=== PATIENT | female | born 1960 | race Caucasian/White ===

== ENCOUNTER 2017-04-14 11:32 | Inpatient (IN) ==
[2017-04-14] MEDS ORDERED: PHENAZOPYRIDINE 95 MG TABLET PO STA (12:17)
[2017-04-14] MEDS ORDERED: LEVOFLOXACIN INJ 750 MG in PREMIX 1 EACH IV STA (12:17)
[2017-04-14] MEDS ORDERED: FUROSEMIDE 40 MG/4 ML VIAL IV STA (12:17)
[2017-04-14] MEDS ORDERED: FUROSEMIDE 40 MG/4 ML VIAL ONE (12:28)
[2017-04-14] MEDS ORDERED: PHENAZOPYRIDINE 95 MG TABLET ONE (12:29)
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
[2017-04-14 13:03] LABS: Basophils # 0.1 10*3/uL (0.0-0.2); Basophils % 1.3 % (0.0-0.8); Eosinophils # 0.3 10*3/uL (0.0-0.87); Eosinophils % 7.1 % (0.00-10.9); Hematocrit 39.7 VOL% (35.7-47.0); Hemoglobin 13.7 GM/DL (12.0-16.0); Immature Granulocytes % 0.3 %; Immature Granulocytes Absolute 0.01 #; Lymphocytes # 0.8 10*3/uL (1.4-4.0); Lymphocytes % 21.2 % (21.3-54.2); Mean Corpuscular HGB Conc 34.5 GM/DL (32-36); Mean Corpuscular Hemoglobin 27 PG (27-34); Mean Corpuscular Volume 78.1 FL (87-102); Mean Platelet Volume 11.2 FL (9.6-12.0); Monocytes # 0.4 10*3/uL (0.11-0.8); Neutrophils # 2.3 10*3/uL (1.4-7.4); Neutrophils % 59.1 % (38.7-73.9); Platelet Count 141 T/CUMM (130-400); Red Blood Count 5.08 MC/CUMM (3.8-5.5); Red Cell Distribution Width 15.7 % (9.3-17.3); White Blood Count 3.9 T/CUMM (4-12)
[2017-04-14 13:25] LABS: Apearance,Urine CLOUDY (Clear); Bacteria,Urine Occasional /HPF (Few); Bilirubin,Urine Negative (Negative); Blood, Urine Large mg/dL (Negative); Glucose,Urine (UA) >=500 mg/dL (Negative); Ketones,Urine Negative (Negative); Mucus,Urine Moderate /LPF (Occasional); Nitrite,Urine Negative (Negative); Protein,Urine 100 MG/DL; RBC,Urine 6798 /HPF (0-4); Squamous Epithelial Cell,Urine Occasional /HPF (0-10); Urine Color Red (Yellow); Urine Specific Gravity 1.021 (1.001-1.035); WBC,Urine 1 /HPF (0-6)
[2017-04-14 13:34] LABS: Alanine Aminotransferase 24 U/L (13-56); Albumin 3.2 G/DL (3.4-5.0); Alkaline Phosphatase 235 U/L (45-117); Amylase 54 U/L (25-115); Aspartate Amino Transferase 31 U/L (0-37); Blood Urea Nitrogen 12 MG/DL (7-18); Calcium 8.7 MG/DL (8.5-10.1); Glucose 383 MG/DL (74-106); Osmolality,Calculated 281.4 MOS/KG (273-304); Sodium 133 MMOL/L (136-145); Total Protein 8.2 G/DL (6.4-8.3); Troponin I Only < 0.015 NG/ML (0.00-0.045)
[2017-04-14] MEDS ORDERED: LEVOFLOXACIN INJ 150 ML IV ONE (13:34)
[2017-04-14 13:39] LABS: Ammonia 96 UMOL/L (11-32)
[2017-04-14] MEDS ORDERED: MORPHINE 2 MG/1 ML SYRINGE IV PRN ×2 (15:11→15:33)
[2017-04-14] MEDS ORDERED: ONDANSETRON 4 MG/2 ML VIAL IV PRN (15:11)
[2017-04-14] MEDS ORDERED: SODIUM CHLORIDE 0.9% 1,000 ML IV SCH (15:30)
[2017-04-14] MEDS ORDERED: diphenhydrAMINE CAP 25 MG CAPSULE PO PRN (15:33)
[2017-04-14] MEDS ORDERED: ACETAMINOPHEN 325 MG TABLET PO PRN ×2 (15:33)
[2017-04-14] MEDS ORDERED: PROMETHAZINE 25 MG/1 ML VIAL IM PRN (15:33)
[2017-04-14] MEDS ORDERED: guaiFENesin/DM ER 600-30 MG TABLET PO PRN (15:33)
--- NOTE | 2017-04-14 15:36 | XRay Report ---
History: Shortness of breath Date: 04/14/2017 Study: Chest x-ray AP portable Comparison exam: No previous similar There is borderline cardiomegaly. There is no mediastinal mass. The pulmonary vasculature is not engorged. The lungs are generally clear when accounting for shallow inspiration and light radiographic technique. There is no gross pleural effusion. There is minimal thoracic spondylosis. Impression: No acute process. Shallow breath. Borderline cardiomegaly PROCEDURE INTERPRETED AT [facility] DEPARTMENT OF RADIOLOGY Final Report Signed by: Dr. Angie Lopez
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
[2017-04-14 15:47] LABS: Triglycerides 105 MG/DL (2-150)
--- NOTE | 2017-04-14 15:50 | CT Report ---
History: Abdominal distention. Hematuria Date: 04/14/2017 Study: CT abdomen and pelvis without contrast Comparison exam: No previous similar Technique: Spiral CT sections were obtained from the lung bases to the pubic symphysis without contrast. CT abdomen: The partially visualized lung bases are grossly clear. There is no gross pleural or pericardial effusion. There is no gross hepatic mass. The liver has a finely nodular outer contour as can be seen with cirrhosis. There is moderate diffuse splenomegaly. There is mild perihepatic and perisplenic ascites with mild paracolic ascites bilaterally as well. The fluid-filled gallbladder is unremarkable. There is no gross mass of the pancreas or kidneys. The adrenal glands are unremarkable. There is no aneurysm of the moderately calcified abdominal aorta. There are some scattered shotty nonspecific mesenteric lymph nodes. There is no evidence of appendicitis. There is no evidence of pneumoperitoneum. There is no radiopaque renal or ureteral stone. CT pelvis: There is no pelvic mass or abnormal pelvic fluid collection. A Woodruff catheter is well-positioned. Impression: Changes compatible with cirrhosis. Splenomegaly. Ascites. No definite acute process otherwise. Woodruff catheter appears well-positioned The CT exam was performed using one or more of the following dose reduction techniques: Automated exposure control, adjustment of the mA and/or kV according to patient size, or use of iterative reconstruction technique. PROCEDURE INTERPRETED AT [facility] DEPARTMENT OF RADIOLOGY Final Report Signed by: Dr. Angie Lopez
[2017-04-14 15:56] LABS: Risk Ratio 3.14; VLDL CHOLESTEROL 21.4 MG/DL
[2017-04-14] MEDS ORDERED: DEXTROSE 50% 25 GM/50 ML SYRINGE IV PRN (16:01)
[2017-04-14] MEDS ORDERED: GLUCAGON 1 MG VIAL IM PRN (16:01)
[2017-04-14] MEDS: SPIRONOLACTONE 100 MG TABLET PO SCH (16:30)
[2017-04-14] MEDS: SODIUM CHLORIDE 0.9% 1,000 ML IV SCH (16:43)
[2017-04-14] MEDS: CIPROFLOXACIN INJ 400 MG in PREMIX 1 EACH IV SCH (16:49)
[2017-04-14] MEDS: PANTOPRAZOLE 40 MG TABLET PO SCH (16:55)
[2017-04-14] MEDS ORDERED: INSULIN LISPRO 100 UNIT/ML SUBCUT SCH (17:00)
--- NOTE | 2017-04-14 17:08 | Ultrasound Report ---
Exam: US gallbladder Date:04/14/2017 3:53 PM Comparison:None Indication: Pancreatitis Real-time ultrasound images are captured and archived. There is mild increased echogenicity throughout the liver compatible with mild fatty infiltration. There is no focal hepatic mass. There is hepatopedal flow in the portal vein. There is mild perihepatic ascites. There is no evidence of cholelithiasis. There is gallbladder wall thickening. The patient was tender over the gallbladder with ultrasound compression. There is no abnormal biliary dilatation. There is a 14 mm simple cyst at the upper pole right kidney. The kidney is otherwise unremarkable. There is some mild plumpness of the pancreas diffusely by sonography, though there is no focal pancreatic mass. ORGAN MEASUREMENTS Liver Length: 16.1 cm Gallbladder Wall Thickness: 6 mm CBD: 3 mm Right kidney: 10.5 cm length Impression: There is gallbladder wall thickening and a positive sonographic Woodall sign. Consider acalculous cholecystitis. There is no cholelithiasis Mild perihepatic ascites Mild nonspecific diffuse prominence of the pancreas PROCEDURE INTERPRETED AT [facility] DEPARTMENT OF RADIOLOGY Final Report Signed by: Dr. Angie Lopez
[2017-04-14 17:11] LABS: Hepatitis A Ab IgM Quant 0.03 Index; Hepatitis A Ab IgM Result Negative (Negative); Hepatitis B Core IgM Quant 0.16 Index; Hepatitis B Core IgM Result Negative (Negative); Hepatitis B Surface Ag Quant 0.14 Index; Hepatitis B Surface Ag Result Negative (Negative); Hepatitis C Virus Ab Quant 0.04 Index; Hepatitis C Virus Ab Result Negative (Negative)
[2017-04-14] MEDS: LACTULOSE 20 GM/30 ML UDCUP PO SCH ×2 (18:45→21:41)
[2017-04-14] MEDS: metroNIDAZOLE INJ 500 MG in PREMIX 1 EACH IV SCH (18:46)
[2017-04-14] MEDS ORDERED: QUEtiapine 25 MG TABLET PO SCH (22:00)
[2017-04-14] MEDS: INSULIN LISPRO 100 UNIT/ML SUBCUT PRN (22:20)
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
[2017-04-15] MEDS: metroNIDAZOLE INJ 500 MG in PREMIX 1 EACH IV SCH ×3 (00:20→10:13)
[2017-04-15] MEDS: SODIUM CHLORIDE 0.9% 1,000 ML IV SCH (03:01)
[2017-04-15] MEDS: LACTULOSE 20 GM/30 ML UDCUP PO SCH ×2 (03:12→06:14)
[2017-04-15] MEDS: CIPROFLOXACIN INJ 400 MG in PREMIX 1 EACH IV SCH (04:00)
--- NOTE | 2017-04-15 07:11 | Gastrointestinal Consult Note ---
Assessment and Plan (1) Cirrhosis of liver with ascites Status: Acute Assessment and plan: This patient has been worked up by Dr. Jordan Barnhart of [facility] but no liver biopsy has been performed. I think she will end up having nonalcoholic fatty liver disease as the cause for her cirrhosis, she also has a slightly elevated alkaline phosphatase and bilirubin suggestive of possible primary biliary cirrhosis and will likely benefit from an antimitochondrial antibody and possibly liver biopsy. She is not a drinker. Her hepatitis A, B, and C are all negative. Will rule out hemochromatosis, alpha-1 antitrypsin deficiency as well, autoimmune hepatitis. I doubt Charles's disease. Current Visit: Yes (2) Pancreatitis Status: Acute Assessment and plan: There may be an abdominal process going on that is made the patient's lipase level elevated. CT scan does not show any inflammation around the pancreas. The patient is getting better on clear liquids and IV fluid rate at 150 mL/h. I do not think I would push the fluid rate higher than this for the present time will simply follow the lipase levels. She may have gallbladder sludge but does not have a history of drinking. It does not appear that her triglycerides are elevated. We will simply watch for right now would not be aggressive is 4 hours other treatments. I suspect that some of her pain may also be due to constipation and we will observe how she does with MiraLAX being given presently. We are getting old records from her commissioner of officials in [facility] as well. Current Visit: Yes (3) Hematuria Status: Acute Assessment and plan: The patient had a Woodruff in place previously and this is since been removed she had a very high red blood cell count and irritation from the Woodruff may be responsible for great amount of the patient's pain, we will watch and see what her urinalysis looks like now that she has had the Woodruff removed. Current Visit: Yes History of Present Illness Chief complaint: Bilateral lower quadrant pain near bladder, hematuria, ? Pancreatitis History of present illness: Ms. Degroot is a 56 year old female who has a history of development of a cramping 10 out of 10 pain in her right and left lower quadrants starting yesterday. She did feel mildly constipated. She has had some relief with passage of bowel movements since that time the pain is now down to 8 out of 10 in intensity. She does have a previous history of being worked up by a local commissioner of officials in [facility] approximately 7-8 months ago, the doctor's name was Dr. Jordan Barnhart. He performed both upper endoscopy on the patient which was "completely normal" as well as a colonoscopy which again was not indicative of any polyps. The patient is not clear as to whether there was diverticulosis noted. The patient was noted to have cirrhosis of some type but although this was hepatitis A, B, and C negative the patient is not sure what the cause of the cirrhosis is--likely nonalcoholic fatty liver disease. The patient denies any heavy drinking IV drug use or high risk sexual exposure. We will check her for autoimmune hepatitis and hemochromatosis as well as alpha-1 antitrypsin deficiency as well. This may or may not be related to the pain. Patient does have evidence of ascites but no pancreatic swelling and no appearance of abnormality of her gallbladder. Her white blood cell count is actually low at 3.9, within normal hematocrit and hemoglobin at 39.7 and 13.7. Glucoses are high running in the high 200s to low 300s. LFTs were normal with a slightly high alkaline phosphatase at 235 and a bilirubin of 1.2 but an ALT and AST that are normal at 31 and 24. Urinalysis shows high urobilinogen level high glucose and low white blood cell count with a high RBC count at 6793. It is unclear whether this is due to traumatic Woodruff insertion versus kidney stone. Triglyceride is only 107. Lipase level was noted to be 652 with a normal amylase level of 54. CT scan obtained yesterday demonstrates changes of cirrhosis with splenomegaly and ascites otherwise no acute process identified Woodruff catheter appeared to be well positioned. There did not appear to be any renal or ureteral stone identified. The ultrasound showed a slight gallbladder wall thickening of 6 mm liver length of 16 cm but no pancreatic mass and no liver mass but increased echogenicity consistent with fatty infiltration versus cirrhosis. Home Medications Medication Instructions Recorded Confirmed Type Aspirin 81 mg PO DAILY 04/14/17 04/14/17 History Atorvastatin [Lipitor] 10 mg PO DAILY 04/14/17 04/14/17 History Clopidogrel [Plavix] 75 mg PO DAILY 04/14/17 04/14/17 History Dexlansoprazole [Dexilant] 60 mg PO DAILY 04/14/17 04/14/17 History Duloxetine HCl [Duloxetine] 60 mg PO BEDTIME 04/14/17 04/14/17 History Enalapril Tab [Vasotec Tab] 20 mg PO DAILY 04/14/17 04/14/17 History Furosemide 40 mg PO BID 04/14/17 04/14/17 History Insulin Detemir [Levemir] See Protocol SUBCUT ACHS 04/14/17 04/14/17 History Insulin Glargine [Lantus] 86 unit SUBCUT BID 04/14/17 04/14/17 History Lactulose Liquid [Chronulac] 3 ml PO Q6HR 04/14/17 04/14/17 History Levothyroxine Tab [Synthroid Tab] 50 mcg PO DAILY@0700 04/14/17 04/14/17 History Magnesium Oxide 400 mg PO BID 04/14/17 04/14/17 History Potassium Chloride 20 meq PO DAILY 04/14/17 04/14/17 History QUEtiapine [SEROquel] 50 mg PO BEDTIME 04/14/17 04/14/17 History Spironolactone 50 mg PO BID 04/14/17 04/14/17 History Sucralfate 1 gm PO QID 04/14/17 04/14/17 History diazePAM [Diazepam] 10 mg PO DAILY 04/14/17 04/14/17 History Allergies Allergy/AdvReac Type Severity Reaction Status Date / Time coconut Allergy ANAPHYLAXIS Verified 04/14/17 12:06 Medical,Surgical,& Family Hx - Medical History Cardio: History of: CAD, Hypertension Psychological: History of: Anxiety Disorders Neurology: History of: Peripheral Neuropathy HEENT: History of: Eye Problem (Legally blind) Endocrine: History of: Diabetes Mellitus (NIDDM), Dyslipidemia, Thyroid Disorder (Takes Synthroid) Respiratory: History of: Obstructive Sleep Apnea Genitourinary: History of: Recurring Urinary Tract Infections Gastrointestinal: History of: GERD, Liver Problems (Liver failure/ascites) - Surgical History Cardiac Surgeries: Sugical HX of: Cardiac Catheterization Abdominal Surgeries: Surgical HX of: Colonoscopy Orthopedic Surgeries: Surgical HX of;: Orthopedic Surgery - Family History Family History: Reports;: Family Hypertension - Social History Smoking Status: Current every day smoker Frequency of Alcohol Use: Occasionally Type of Drug Use: None Review of systems: Constitutional: Denies fever, chills, with some nausea, and vomiting yesterday Eyes: Denies dry eyes, and scleral icterus HENT: Denies headaches Cardiovascular: Denies acute chest pain and claudication Respiratory: Denies shortness of breath, wheezing, and difficulty breathing, denies cough Gastrointestinal: As noted in the HPI Genitourinary: Denies dysuria and hematuria Neurologic: Denies vision loss, and loss of sensation Musculoskeletal: Patient does complain of some mild joint swelling, joint stiffness, and muscular weakness Psychiatric: Denies depression and polina symptoms Heme-Lymph: Denies easy bruising, lymph node enlargement or tenderness, night sweats, excessive bleeding Allergies-immunologic: Denies pruritus and rhinorrhea Exam - Constitutional Vitals: Period Temp Pulse Resp BP Sys/Bender Pulse Ox Last 24 Hr 96.5 F-98.3 F 71-104 16-98 103-144/60-97 93-100 Exam: Constitutional: Well-developed, well-nourished, alert, and in no acute distress Head and face: Head: Normocephalic atraumatic Eyes: Conjunctiva without injection, no gross scleral icterus, pupils equal and round bilaterally Ears: Intact to conversation in both ears Nose: External appearance is normal, nares patent Mouth: Oral mucous membranes moist without erythema dentition noted to be without erosion Neck: Normal appearance, no masses or tenderness, trachea midline Thyroid: Gland midline and appropriate size for age Respiratory: Normal respiratory effort, clear to auscultation without wheezes, rhonchi or rales Cardiovascular: Regular rate and rhythm, normal S1, S2, the exam is without rubs, murmurs or gallops. Gastrointestinal: Mild tenderness over the bladder and the bilateral lower quadrants that is minimally tender to deep to palpation, normal active bowel sounds, obese with large pannus present tone normal without rigidity or guarding , no masses present, no hepatomegaly, no spleen tip felt. Rectal examination showed good tone no external fissures or fistulas stool is yellow pasty and guaiac negative. Lymphatic: Neck without adenopathy, axilla without lymphadenopathy present Musculoskeletal: Right and left lower extremities trace edema noted at the ankles bilaterally Skin and subcutaneous tissue: No rashes or ulcerations noted, normal skin turgor, digits and nails without clubbing/cyanosis/deformities. Neurologic: The patient is grossly oriented to person place and time, cranial nerves show tongue movements are normal with normal tongue extrusion midline, light touch sensation is intact. Psychiatric: No hallucinations or delusions are present, does not appear depressed Results - Labs CBC & BMP: 04/14/17 12:48 04/14/17 12:48 Quality Measures - VTE Contraindication to Pharmacological VTE Prophylaxis: High Risk of Bleeding
[2017-04-15 07:34] LABS: Basophils % 1.3 % (0.0-0.8); Eosinophils # 0.3 10*3/uL (0.0-0.87); Eosinophils % 8.5 % (0.00-10.9); Hematocrit 36.9 VOL% (35.7-47.0); Hemoglobin 12.6 GM/DL (12.0-16.0); Immature Granulocytes % 0.3 %; Immature Granulocytes Absolute 0.01 #; Lymphocytes # 0.8 10*3/uL (1.4-4.0); Lymphocytes % 26.5 % (21.3-54.2); Mean Corpuscular HGB Conc 34.1 GM/DL (32-36); Mean Corpuscular Hemoglobin 27 PG (27-34); Mean Corpuscular Volume 78.5 FL (87-102); Mean Platelet Volume 10.5 FL (9.6-12.0); Monocytes # 0.4 10*3/uL (0.11-0.8); Neutrophils # 1.6 10*3/uL (1.4-7.4); Neutrophils % 51.4 % (38.7-73.9); Platelet Count 115 T/CUMM (130-400); Red Cell Distribution Width 15.5 % (9.3-17.3); White Blood Count 3.2 T/CUMM (4-12)
[2017-04-15 08:08] LABS: % Iron Saturation 20.2 % (18-50)
--- NOTE | 2017-04-15 08:08 | EKG Report ---
Stationary ECG Study [facility] ER Test Date: 04/14/2017 3:45:49 PM Pat Name: HANANE CUEVAS Department: Room: 244 Gender: F Family Service Caseworker: : [id number] Requested by: Ruddy Weaver Order Number: [id number] Reading MD: NIGEL QUINONEZ Intervals [place] Rate: 85 P: -21 CO: 138 QRS: 78 QRSD: 85 T: 25 QT: 383 QTc: 426 Interpretive Statements SINUS RHYTHM LOW QRS VOLTAGE IN PRECORDIAL LEADS Electronically Signed On 04-15-17 15:31:36 CDT by NIGEL QUINONEZ [email or web address]
[2017-04-15 08:12] LABS: Albumin 2.8 G/DL (3.4-5.0); Bilirubin,Total 1.4 MG/DL (0.2-1.0); Calcium 8.6 MG/DL (8.5-10.1); Magnesium 1.9 MG/DL (1.8-2.4); Osmolality,Calculated 286.1 MOS/KG (273-304); Potassium 3.8 MMOL/L (3.5-5.1); Total Protein 6.7 G/DL (6.4-8.3)
[2017-04-15] MEDS ORDERED: PANTOPRAZOLE 40 MG VIAL IV SCH (09:00)
[2017-04-15] MEDS ORDERED: POLYETHYLENE GLYCOL POWDER 17 GM PACK PO SCH (09:00)
[2017-04-15] MEDS: PANTOPRAZOLE 40 MG TABLET PO SCH (10:04)
[2017-04-15] MEDS: SPIRONOLACTONE 100 MG TABLET PO SCH (10:05)
[2017-04-15] MEDS: INSULIN LISPRO 100 UNIT/ML SUBCUT PRN ×2 (10:05→12:10)
--- NOTE | 2017-04-15 11:34 | Discharge Summary ---
Hospital Course - Hospital Course Hospital Course: Ms. Degroot is a 56 year old female who has a history of development of a cramping 10 out of 10 pain in her right and left lower quadrants starting yesterday. She did feel mildly constipated. She has had some relief with passage of bowel movements since that time the pain is now down to 8 out of 10 in intensity. She does have a previous history of being worked up by a local real estate sales supervisor in [facility] approximately 7-8 months ago, the doctor's name was Dr. Jordan Barnhart. He performed both upper endoscopy on the patient which was "completely normal" as well as a colonoscopy which again was not indicative of any polyps. The patient is not clear as to whether there was diverticulosis noted. The patient was noted to have cirrhosis of some type but although this was hepatitis A, B, and C negative the patient is not sure what the cause of the cirrhosis is--likely nonalcoholic fatty liver disease. The patient denies any heavy drinking IV drug use or high risk sexual exposure. We will check her for autoimmune hepatitis and hemochromatosis as well as alpha-1 antitrypsin deficiency as well. This may or may not be related to the pain. Patient does have evidence of ascites but no pancreatic swelling and no appearance of abnormality of her gallbladder. Her white blood cell count is actually low at 3.9, within normal hematocrit and hemoglobin at 39.7 and 13.7. Glucoses are high running in the high 200s to low 300s. LFTs were normal with a slightly high alkaline phosphatase at 235 and a bilirubin of 1.2 but an ALT and AST that are normal at 31 and 24. Urinalysis shows high urobilinogen level high glucose and low white blood cell count with a high RBC count at 6793. It is unclear whether this is due to traumatic Woodruff insertion versus kidney stone. Triglyceride is only 107. Lipase level was noted to be 652 with a normal amylase level of 54. CT scan obtained yesterday demonstrates changes of cirrhosis with splenomegaly and ascites otherwise no acute process identified Woodruff catheter appeared to be well positioned. There did not appear to be any renal or ureteral stone identified. The ultrasound showed a slight gallbladder wall thickening of 6 mm liver length of 16 cm but no pancreatic mass and no liver mass but increased echogenicity consistent with fatty infiltration versus cirrhosis. Patient was admitted to the hospital with hematuria presumed to be secondary to the indwelling Woodruff catheter, cirrhosis with ascites, mild pancreatitis, and hyperglycemia. The Woodruff catheter was removed. Her hematuria stopped. She only experienced mild abdominal discomfort. Her home medications were restarted. The following day her daughter came to the hospital angrily demanding that her mother be discharged. At the time of discharge the patient was stable. Diagnosis - Discharge Diagnosis (1) Hypertension Status: Chronic (2) Diabetes Status: Chronic (3) Hematuria Status: Acute (4) Pancreatitis Status: Acute (5) Hyperglycemia Status: Acute (6) Cirrhosis of liver with ascites Status: Chronic Discharge Plan - Discharge Data Disposition: Disch To Home/Self Care Condition at Discharge: Stable Discharge Diet: advance to your usual diet Activity: resume usual activities as tolerated - Discharge Medications Continue Lactulose Liquid [Chronulac] 3 ml PO Q6HR Aspirin 81 mg PO DAILY Sucralfate 1 gm PO QID Duloxetine HCl [Duloxetine] 60 mg PO BEDTIME Clopidogrel [Plavix] 75 mg PO DAILY Atorvastatin [Lipitor] 10 mg PO DAILY Furosemide 40 mg PO BID Magnesium Oxide 400 mg PO BID Enalapril Tab [Vasotec Tab] 20 mg PO DAILY Potassium Chloride 20 meq PO DAILY Levothyroxine Tab [Synthroid Tab] 50 mcg PO DAILY@0700 Insulin Glargine [Lantus] 86 unit SUBCUT BID Insulin Detemir [Levemir] See Protocol SUBCUT ACHS diazePAM [Diazepam] 10 mg PO DAILY QUEtiapine [SEROquel] 50 mg PO BEDTIME Spironolactone 50 mg PO BID Dexlansoprazole [Dexilant] 60 mg PO DAILY - Follow Up or Referral - Forms/Instructions Exam - Constitutional Vitals: Period Temp Pulse Resp BP Sys/Bender Pulse Ox Last 24 Hr 96.5 F-98.3 F 71-104 16-98 103-144/56-97 93-100 Discharge Results Procedures and tests throughout hospitalization: Pending Orders 04/14/17 12:49 Urine Culture Stat 04/14/17 13:33 Blood Culture Stat 04/15/17 07:05 Urinalysis Routine 04/15/17 07:23 [id number], S Routine Anti-nuclear Antibody Screen Routine Mitochondrial Antibody (M2) Routine Labs on day of discharge: Labs from last 24 hours 04/15/17 04/15/17 04/15/17 07:59 07:23 07:23 WBC RBC Hgb Hct MCV MCH MCHC RDW Plt Count MPV Neut % (Auto) Lymph % (Auto) [place] % (Auto) Eos % (Auto) Baso % (Auto) Neut # (Auto) Lymph # (Auto) [place] # (Auto) Eos # (Auto) Baso # (Auto) Immature Gran % Nucleated RBC % Immature Gran # Nucleated RBCs # Immature Plt Fraction Sodium 142 Potassium 3.8 Chloride 106 Carbon Dioxide 33 H Anion Gap 6.8 BUN 9 Creatinine 0.90 GFR Calculation 91 BUN/Creatinine Ratio 10.00 Glucose 191 H POC Glucose 191 H Hemoglobin A1c Calculated Osmolality 286.1 Calcium 8.6 Magnesium 1.9 Iron 64 TIBC 317 % Saturation 20.2 Total Bilirubin 1.40 H AST 21 ALT 22 Alkaline Phosphatase 192 H Ammonia Lactate Dehydrogenase Total Creatine Kinase CK-MB (CK-2) Troponin I Total Protein 6.7 Albumin 2.8 L Globulin 3.9 H Albumin/Globulin Ratio 0.7 L Triglycerides Cholesterol LDL Cholesterol VLDL Cholesterol HDL Cholesterol Heart Disease Risk Ratio Amylase Lipase Urine Color Urine Appearance Urine pH Ur Specific [place] Urine Protein Urine Glucose (UA) Urine Ketones Urine Blood Urine Nitrate Urine Bilirubin Urine Urobilinogen Urine Leukocytes Urine RBC Urine WBC Ur Squamous Epith Cells Urine Bacteria Urine Mucus Ur Culture Indicated? Hepatitis A IgM Ab Hep Bs Antigen Hep B Core IgM Ab Hepatitis C Antibody 04/15/17 04/15/17 04/14/17 07:23 00:11 Unknown WBC 3.2 L RBC 4.70 Hgb 12.6 Hct 36.9 MCV 78.5 L MCH 27 MCHC 34.1 RDW 15.5 Plt Count 115 L MPV 10.5 Neut % (Auto) 51.4 Lymph % (Auto) 26.5 [place] % (Auto) 12.0 Eos % (Auto) 8.5 Baso % (Auto) 1.3 H Neut # (Auto) 1.6 Lymph # (Auto) 0.8 L [place] # (Auto) 0.4 Eos # (Auto) 0.3 Baso # (Auto) 0.0 Immature Gran % 0.3 Nucleated RBC % 0.0 Immature Gran # 0.01 Nucleated RBCs # 0.00 Immature Plt Fraction 0.0 Sodium Potassium Chloride Carbon Dioxide Anion Gap BUN Creatinine GFR Calculation BUN/Creatinine Ratio Glucose POC Glucose 259 H Hemoglobin A1c Calculated Osmolality Calcium Magnesium Iron TIBC % Saturation Total Bilirubin AST ALT Alkaline Phosphatase Ammonia Lactate Dehydrogenase Total Creatine Kinase CK-MB (CK-2) Troponin I Total Protein Albumin Globulin Albumin/Globulin Ratio Triglycerides 107 Cholesterol 138 LDL Cholesterol 81.0 VLDL Cholesterol 21.4 HDL Cholesterol 44 Heart Disease Risk Ratio 3.14 Amylase Lipase Urine Color Urine Appearance Urine pH Ur Specific [place] Urine Protein Urine Glucose (UA) Urine Ketones Urine Blood Urine Nitrate Urine Bilirubin Urine Urobilinogen Urine Leukocytes Urine RBC Urine WBC Ur Squamous Epith Cells Urine Bacteria Urine Mucus Ur Culture Indicated? Hepatitis A IgM Ab Hep Bs Antigen Hep B Core IgM Ab Hepatitis C Antibody 04/14/17 04/14/17 04/14/17 Unknown Unknown 21:45 WBC RBC Hgb Hct MCV MCH MCHC RDW Plt Count MPV Neut % (Auto) Lymph % (Auto) [place] % (Auto) Eos % (Auto) Baso % (Auto) Neut # (Auto) Lymph # (Auto) [place] # (Auto) Eos # (Auto) Baso # (Auto) Immature Gran % Nucleated RBC % Immature Gran # Nucleated RBCs # Immature Plt Fraction Sodium Potassium Chloride Carbon Dioxide Anion Gap BUN Creatinine GFR Calculation BUN/Creatinine Ratio Glucose POC Glucose 316 H Hemoglobin A1c 8.3 H Calculated Osmolality Calcium Magnesium Iron TIBC % Saturation Total Bilirubin AST ALT Alkaline Phosphatase Ammonia Lactate Dehydrogenase 288 H Total Creatine Kinase CK-MB (CK-2) Troponin I Total Protein Albumin Globulin Albumin/Globulin Ratio Triglycerides 105 Cholesterol LDL Cholesterol VLDL Cholesterol HDL Cholesterol Heart Disease Risk Ratio Amylase Lipase Urine Color Urine Appearance Urine pH Ur Specific [place] Urine Protein Urine Glucose (UA) Urine Ketones Urine Blood Urine Nitrate Urine Bilirubin Urine Urobilinogen Urine Leukocytes Urine RBC Urine WBC Ur Squamous Epith Cells Urine Bacteria Urine Mucus Ur Culture Indicated? Hepatitis A IgM Ab Hep Bs Antigen Hep B Core IgM Ab Hepatitis C Antibody 04/14/17 04/14/17 04/14/17 16:20 13:39 12:49 WBC RBC Hgb Hct MCV MCH MCHC RDW Plt Count MPV Neut % (Auto) Lymph % (Auto) [place] % (Auto) Eos % (Auto) Baso % (Auto) Neut # (Auto) Lymph # (Auto) [place] # (Auto) Eos # (Auto) Baso # (Auto) Immature Gran % Nucleated RBC % Immature Gran # Nucleated RBCs # Immature Plt Fraction Sodium Potassium Chloride Carbon Dioxide Anion Gap BUN Creatinine GFR Calculation BUN/Creatinine Ratio Glucose POC Glucose 285 H Hemoglobin A1c Calculated Osmolality Calcium Magnesium Iron TIBC % Saturation Total Bilirubin AST ALT Alkaline Phosphatase Ammonia Lactate Dehydrogenase Total Creatine Kinase CK-MB (CK-2) Troponin I Total Protein Albumin Globulin Albumin/Globulin Ratio Triglycerides Cholesterol LDL Cholesterol VLDL Cholesterol HDL Cholesterol Heart Disease Risk Ratio Amylase Lipase Urine Color Red Urine Appearance Cloudy Urine pH 6.0 Ur Specific [place] 1.021 Urine Protein 100 Urine Glucose (UA) >=500 Urine Ketones Negative Urine Blood Large Urine Nitrate Negative Urine Bilirubin Negative Urine Urobilinogen 4.0 H Urine Leukocytes Negative Urine RBC 6798 Urine WBC 1 Ur Squamous Epith Cells Occasional Urine Bacteria Occasional Urine Mucus Moderate Ur Culture Indicated? Not indicated Hepatitis A IgM Ab Negative Hep Bs Antigen Negative Hep B Core IgM Ab Negative Hepatitis C Antibody Negative 04/14/17 04/14/17 12:48 12:48 WBC 3.9 L RBC 5.08 Hgb 13.7 Hct 39.7 MCV 78.1 L MCH 27 MCHC 34.5 RDW 15.7 Plt Count 141 MPV 11.2 Neut % (Auto) 59.1 Lymph % (Auto) 21.2 L [place] % (Auto) 11.0 Eos % (Auto) 7.1 Baso % (Auto) 1.3 H Neut # (Auto) 2.3 Lymph # (Auto) 0.8 L [place] # (Auto) 0.4 Eos # (Auto) 0.3 Baso # (Auto) 0.1 Immature Gran % 0.3 Nucleated RBC % 0.0 Immature Gran # 0.01 Nucleated RBCs # 0.00 Immature Plt Fraction 0.0 Sodium 133 L Potassium 4.0 Chloride 98 Carbon Dioxide 29 Anion Gap 10.0 BUN 12 Creatinine 1.00 GFR Calculation 81 BUN/Creatinine Ratio 12.00 Glucose 383 H POC Glucose Hemoglobin A1c Calculated Osmolality 281.4 Calcium 8.7 Magnesium Iron TIBC % Saturation Total Bilirubin 1.20 H AST 31 ALT 24 Alkaline Phosphatase 235 H Ammonia 96 H Lactate Dehydrogenase Total Creatine Kinase 104 CK-MB (CK-2) 2.0 Troponin I < 0.015 Total Protein 8.2 Albumin 3.2 L Globulin 5.0 H Albumin/Globulin Ratio 0.6 L Triglycerides Cholesterol LDL Cholesterol VLDL Cholesterol HDL Cholesterol Heart Disease Risk Ratio Amylase 54 Lipase 652.0 H Urine Color Urine Appearance Urine pH Ur Specific [place] Urine Protein Urine Glucose (UA) Urine Ketones Urine Blood Urine Nitrate Urine Bilirubin Urine Urobilinogen Urine Leukocytes Urine RBC Urine WBC Ur Squamous Epith Cells Urine Bacteria Urine Mucus Ur Culture Indicated? Hepatitis A IgM Ab Hep Bs Antigen Hep B Core IgM Ab Hepatitis C Antibody Preliminary micro results at discharge 04/14/17 12:49 Urine Culture - Preliminary Urine,Woodruff Port Gram Positive Cocci DS: Provider Date of admission: 04/14/17 14:49 Primary care physician: . No PCP Attending physician on admission: Jose Miguel Munroe Consults: 04/14/17 15:12 Consult to Physician [CONS] Routine Comment: pancreatitis Consulting Provider: Ken Hodge When should Consulting Provider be notified: Now Consult to Specialist Group: Gastroenterology Person Notified: Dr. Hodge Date Notified: 04/14/17 Time Notified: 15:45 Consult Notification Comment: Will see patient in AM. 04/14/17 15:30 Consult to Physician [CONS] Routine Comment: hematuria Consulting Provider: Dereje Greenfield When should Consulting Provider be notified: Now Person Notified: Dr. Greenfield Date Notified: 04/14/17 Time Notified: 15:50 04/14/17 16:16 Consult to Dietitian [CONS] Routine Reason for Dietitian: Dietary Consult Consult to Pastoral Services [CONS] Routine Comment: Pastoral Screen: Declines Visit Pastoral Screen Source of Request: Patient Discharging clinician: Jose Miguel Munroe
[2017-04-15 12:22] VITALS: BP 145/83
[2017-04-17 20:06] LABS: Mitochondrial Antibody (M2) <0.1 U
== END 2017-04-15 14:10 | disposition home or self-care (01) | DRG 698 ==
LOC: EDBD → N.ED 11:32 → N.EDINP 14:49 → N.2E 16:00